=== PATIENT | male | born 1930 | race Hispanic/Latino ===

== ENCOUNTER 2017-06-19 14:46 | Outpatient (CLI) | payer OTHER ==
[2017-06-19 15:32] LABS: Blood Urea Nitrogen 24 mg/dL (9-20)
--- NOTE | 2017-06-20 10:50 | Magnetic Resonance Report ---
MRI LUMBAR SPINE WITHOUT CONTRAST HISTORY: Incontinence. TECHNIQUE: axial T1, T2. sagittal T1,T2, STIR. COMPARISON: none. FINDINGS: The conus terminates at L1. No signal abnormality or mass. The cauda equina is within normal limits. There is 2-3 mm anterolisthesis of L4 with respect to L5 on the sagittal images which appears to be secondary to degenerative facet arthropathy. No pars defect. The remaining lumbar vertebra are normal in alignment. Normal bone marrow signal. No evidence for fracture or bone lesion. There is diffuse disc desiccation and narrowing. Moderate multilevel facet arthropathy is also noted. L1-2: No significant abnormality. L2-3: Mild circumferential bulging disc, mild facet arthropathy and mild hypertrophy of ligamentum flavum are noted. No central canal stenosis or high-grade neural foraminal narrowing. L3-4: Mild circumferential bulging disc, mild facet arthropathy and mild hypertrophy of ligamentum flavum are noted. There is moderate central canal narrowing measuring 7.4 mm in AP dimension. Bilateral neural foraminal narrowing is estimated at 25-50%. L4-5: Anterolisthesis is again noted. There is a moderate diffuse posterior bulging disc, moderate facet arthropathy and moderate hypertrophy of ligamentum flavum. This results in high-grade central canal stenosis measuring 6 mm in AP dimension. Bilateral neural foraminal narrowing is estimated at 50-75%. L5-S1: Mild posterior bulging disc and mild facet arthropathy are noted. No central canal narrowing. Left neural foraminal narrowing is estimated at 25%. Right neural foraminal narrowing is estimated at 75%. IMPRESSION: Lumbar spondylosis as outlined above. L4-5 appears to be the most affected level where there is spondylolisthesis, central canal narrowing and bilateral neural foraminal narrowing. Please see above. No evidence for fracture or bone lesion.
--- NOTE | 2017-06-20 10:55 | Magnetic Resonance Report ---
MRI BRAIN WITH/WITHOUT CONTRAST: History: Dementia, normal pressure hydrocephalus Technique: Multiple T1 and T2 weighted images were obtained in multiple planes. Axial diffusion and gradient imaging was performed. Post contrast T1 images in two planes were obtained following IV gadolinium. Findings: There is no evidence for diffusion restriction, hemorrhage, mass or extra axial fluid collection. Advanced diffuse volume loss is evident. There is diffuse increased T2 signal throughout the white matter of both cerebral hemispheres. This is a nonspecific finding but most likely related to chronic microvascular ischemic disease. 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 No large chronic infarct. The lateral ventricles appear normal caliber. There is no convincing hydrocephalus. The brainstem and cerebellar hemispheres are within normal limits. The fourth ventricle is midline. The paranasal sinuses and mastoid air cells are well aerated. Normal flow voids are identified in the appropriate vessels at the [place]. No abnormal enhancement is identified following IV gadolinium. Impression: Advanced diffuse volume loss and chronic white matter changes as described. 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 No acute intracranial process or abnormal enhancement.
== END 2017-06-19 14:47 | disposition home or self-care (01) ==
LOC: MRI 14:46
PROVIDERS: ATTEND Internal Medicine
DX: I63.9 Cerebral infarction, unspecified (principal); R41.3 Other amnesia; M47.896 Other spondylosis, lumbar region; M43.16 Spondylolisthesis, lumbar region; D64.9 Anemia, unspecified; I10 Essential (primary) hypertension; I48.91 Unspecified atrial fibrillation
CPT/HCPCS: 36415; 70553; 72148; 82565; 84520; A9577

== ENCOUNTER 2017-09-05 07:25 | Outpatient (CLI) | payer OTHER ==
--- NOTE | 2017-09-05 09:12 | Cat Scan Report ---
CT HEAD WITHOUT CONTRAST INDICATION: Subdural hematoma. COMPARISON: 06/19/2017 MRI. FINDINGS: Noncontrast head CT demonstrates symmetric, age-appropriate, mildly enlarged ventricles and sulci. Extensive periventricular and white matter hypodense small vessel ischemic disease as also few small ganglionic lacunar infarcts as measuring up to 4 mm on the right, image 23, series 2. Benign left basal ganglia calcifications. No acute infarct, hemorrhage, mass effect or midline shift. No abnormal extra axial fluid collections. Normal posterior fossa with preserved basilar cisterns. Slight rightward nasal septal bowing may be partially imaged. Slight pansinusitis, improved since May 2017. Mastoid air cells also now clear. Bilateral external auditory canal debris may be directly visualized. Extensive atherosclerotic ICA and vertebral artery calcifications bilaterally. Intact calvarium. Normal scalp. Small radiopaque dental fillings and few missing teeth. CONCLUSION: No acute intracranial CT abnormality with age-appropriate atrophy, extensive microvascular changes, much improved sinusitis and few other incidental findings, as above. Thank you for the opportunity to participate in this patient's care.
== END 2017-09-05 07:26 | disposition home or self-care (01) ==
LOC: CT 07:25
PROVIDERS: ATTEND Internal Medicine
DX: G23.8 Other specified degenerative diseases of basal ganglia (principal); G31.89 Other specified degenerative diseases of nervous system; J32.4 Chronic pansinusitis; I25.10 Atherosclerotic heart disease of native coronary artery without angina pectoris
CPT/HCPCS: 70450